=== PATIENT | female | born 1980 | race Caucasian/White ===

== ENCOUNTER 2017-09-01 12:08 | Emergency (ER) | payer OTHER ==
[~2017-09-01] VITALS: Ht 160 cm; Wt 86.2 kg
[~2017-09-01 12:08] MED LIST: AMOX1TAB61 PO; BACI3.5O8 OP; CEPH-263 PO; CEPH-264 PO; CIPR500T PO; DIPH25CA58 PO; HYDR-79 PO; HYDR-963 PO; HYDR-971 PO; HYDR25CA PO; NAPR-514 PO; PRED50TA PO; TRAM50TA PO
--- NOTE | 2017-09-01 12:32 | PHYS DOC ---
General Chief Complaint: ROSANA Stated Complaint: SHOULDER PAIN Time Seen by MD: 12:13 Source: patient Exam Limitations: no limitations Problems: History of Present Illness Initial Comments 37-year-old female comes to the ED complaining of left shoulder pain. Patient states that for the past 1-2 weeks she's had posterior left shoulder pain. She denies any trauma or other known inciting event, states that maybe she slept on it wrong. She points to the muscle belly of infraspinatus when asked to localize her discomfort, says that she has pain with movement of her left shoulder in all directions. She saw her chiropractor and will not go back as her pain worsened. Patient is left-handed and states that she can hardly move her arm without severe pain today. Otherwise denies left upper extremity numbness tingling weakness or radiating symptoms, no bony tenderness. 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 Over-the- counter medications are not helping she has not seen her PCP. Onset: other Severity: severe Pain/Injury Location: left shoulder Method of Injury: unknown Modifying Factors: worse with jarring, worse with movement, improves with rest Allergies: Coded Allergies: Sulfa (Sulfonamide Antibiotics) (Verified Allergy, Intermediate, Rash, ) meloxicam (Verified Allergy, Intermediate, Rash, 04/05/16) prochlorperazine (Verified Allergy, Intermediate, Rash, 04/05/16) menthol (Verified Allergy, Unknown, 04/05/16) rofecoxib (Verified Allergy, Unknown, 04/05/16) Uncoded Allergies: CALAMINE LOTION (Allergy, Unknown, 04/05/16) Past Medical History Medical History: other (asthma) Surgical History: noncontributory Social History Smoker: cigarettes Alcohol: none Drugs: none Review of Systems Constitutional: denies chills, denies diaphoresis, denies fever Respiratory: denies cough, denies shortness of breath Cardiovascular: denies chest pain, denies palpitations Gastrointestinal: denies nausea, denies vomiting Genitourinary: denies frequency, denies hematuria Musculoskeletal: see HPI Skin: see HPI Psychiatric/Neurological: see HPI Physical Exam General Appearance: no apparent distress HEENT: PERRL/EOMI, normal ENT inspection Neck: non-tender, full range of motion, supple Cardiovascular/Respiratory: normal peripheral pulses, normal breath sounds, no respiratory distress Back: no CVA tenderness, no vertebral tenderness Shoulder: soft tissue tenderness (left shoulder: Range of motion not tested due to patient intolerance, tenderness at the infraspinatus and less so at supraspinatus, rotator cuff tendons do appear to be intact there is no soft tissue swelling or skin changes, no bony tenderness or palpable soft tissue or bony deformity. No shoulder instability extremity is neurovascularly intact.) Neurologic/Tendon: normal sensation, normal motor functions, normal tendon functions, responds to pain Psychiatric: alert, oriented x 3 Skin: normal color, warm/dry Orders, Labs, Meds Patient is in agreement that in the absence of trauma plain films would be of little benefit. We will treat symptomatically and if conservative treatment does not resolve symptoms patient agrees to follow-up with her doctor to see if MRI evaluation or outpatient specialty referral, and possibly physical therapy might be indicated. I discussed activity modification, shoulder sling, over-the- counter prescription medications. I discussed signs and symptoms to monitor for as well as indications for urgent return to the department. I advised her to stop smoking and her questions were answered to her satisfaction. She expressed agreement and understanding with treatment plan Departure Time of Disposition: 12:30 Disposition: 01 HOME, SELF-CARE Diagnosis: left shoulder strain Condition: GOOD Patient Instructions: ODALIS - Routine Care for Injuries, [id number], Shoulder Pain, [id number] Additional Instructions: ODALIS, see handout. Wear left arm sling except when bathing. Xium-ebc-dlruylk ibuprofen for baseline discomfort. Prescription: Cyclobenzaprine, [place] 5 mg quantity 10 After 48 hours may change room attendant from ice and start using a heating pad 15-20 minutes 4-6 times daily followed by gentle stretching. Follow-up with your doctor in 2 weeks for recheck, may need MRI or outpatient orthopedics evaluation. Return to ED with new or changing symptoms. JUANA SMITH DO Sep 01, 2017 12:32
[2017-09-01] MEDS ORDERED: CYCL-331 PO (12:34)
[2017-09-01] MEDS ORDERED: HYDR-971 PO (12:34)
[2017-09-01 12:40] VITALS: BP 163/90
[2017-09-01] MEDS ORDERED: HYDROcodone/APAP 7.5/325MG 1 TAB TABLET PO ONE (12:45)
[2017-09-01] MEDS ORDERED: CYCLOBENZAPRINE 10 MG TABLET. PO ONE (12:45)
== END 2017-09-01 12:46 | disposition home or self-care (01) ==
LOC: ER 12:08
DX: S46.912A Strain of unspecified muscle, fascia and tendon at shoulder and upper arm level, left arm, initial encounter (principal); J45.909 Unspecified asthma, uncomplicated; F17.210 Nicotine dependence, cigarettes, uncomplicated; Z88.2 Allergy status to sulfonamides; Z88.8 Allergy status to other drugs, medicaments and biological substances; X58.XXXA Exposure to other specified factors, initial encounter; Y93.89 Activity, other specified; Y99.8 Other external cause status; Y92.89 Other specified places as the place of occurrence of the external cause
CPT/HCPCS: 99283

== ENCOUNTER 2017-10-03 23:18 | Emergency (ER) | payer SELFPAY ==
[~2017-10-03] VITALS: Ht 160 cm; Wt 88.0 kg
[~2017-10-03 23:18] MED LIST changes: +CYCL-331 PO
[2017-10-03 23:20] VITALS: BP 127/80
--- NOTE | 2017-10-03 23:24 | ED.ADGEN ---
Past History Past Medical History: Asthma Past Surgical History: Cholecystectomy, Hysterectomy, Tonsillectomy, Tubal ligation, Other Alcohol Use: None Drug Use: None Adult General Chief Complaint Chief Complaint " .. I am very allergic to bug bites.. I got several the past couple days..they are itching really bad... and hurt.." " We got a new mattress... so I don't think it bed bugs.. and have been out in [place] the last couple days.." HPI HPI Patient is a 37 year old female who presents with above hx and complaints of insect bites. Pt. has multiple inflamed bites, almost mosquito or chigger bite like lesions. Pt. has been scratching them. No pustules. No linear lesions. One bite is under bra strap on back. Other under the under garment. Pt. denies travel or specific ill contacts. No hx immunosuppression. Review of Systems Review of Systems Constitutional: Denies fever or chills [] Eyes: Denies change in visual acuity, redness, or eye pain [] HENT: Denies nasal congestion or sore throat [] Respiratory: Denies cough or shortness of breath [] Cardiovascular: No additional information not addressed in HPI [] GI: Denies abdominal pain, nausea, vomiting, bloody stools or diarrhea [] : Denies dysuria or hematuria [] Musculoskeletal: Denies back pain or joint pain [] Integument: Denies rash or skin lesions [] Complaints of bug bites. Neurologic: Denies headache, focal weakness or sensory changes [] Endocrine: Denies polyuria or polydipsia [] All other systems were reviewed and found to be within normal limits, except as documented in this note. Family History Family History Non-contributory Current Medications Current Medications Current Medications Medications (Trade) Dose Ordered Sig/Lisa Start Time Stop Time Status Last Admin Dose Admin Bacitracin/ Polymyxin B Sulfate (Polysporin) 1 darron 1X ONCE 10/04/17 00:00 10/04/17 00:01 DC 10/03/17 23:47 1 DARRON Famotidine (Pepcid) 20 mg 1X ONCE 10/04/17 00:00 10/04/17 00:01 DC 10/03/17 23:48 20 MG Hydrocodone Bitartrate/ Ibuprofen (Vicoprofen 7.5-200) 2 tab 1X ONCE 10/04/17 00:00 10/04/17 00:01 DC 10/03/17 23:49 2 TAB Prednisone (Prednisone) 60 mg 1X ONCE 10/04/17 00:00 10/04/17 00:01 DC 10/03/17 23:47 60 MG Allergies Allergies Allergies Coded Allergies Type Severity Reaction Last Updated Verified hydrochlorothiazide Allergy Severe 10/03/17 Yes Sulfa (Sulfonamide Antibiotics) Allergy Intermediate Rash 10/03/17 Yes meloxicam Allergy Intermediate Rash 10/03/17 Yes prochlorperazine Allergy Intermediate Rash 10/03/17 Yes menthol Allergy Unknown 10/03/17 Yes rofecoxib Allergy Unknown 10/03/17 Yes Uncoded Allergies Type Severity Reaction Last Updated Verified CALAMINE LOTION Allergy Unknown 04/05/16 Physical Exam Physical Exam Constitutional: Moderate acute distress, non-toxic appearance. [] HENT: Normocephalic, atraumatic, bilateral external ears normal, oropharynx moist, no oral exudates, nose normal. [] Eyes: PERRLA, EOMI, conjunctiva normal, no discharge. [] Neck: Normal range of motion, no tenderness, supple, no stridor. [] Cardiovascular:Heart rate regular rhythm, no murmur [] Lungs & Thorax: Bilateral breath sounds clear to auscultation [] Abdomen: Bowel sounds normal, soft, no tenderness, no masses, no pulsatile masses. [] Old surgery scars. Skin: Warm, dry, no erythema, no rash. [] Insect bites Back: No tenderness, no CVA tenderness. [] Extremities: No tenderness, no cyanosis, no clubbing, ROM intact, no edema. [] Neurologic: Alert and oriented X 3, normal motor function, normal sensory function, no focal deficits noted. [] Psychologic: Affect normal, judgement normal, mood normal. [] Current Patient Data Vital Signs Vital Signs Date Time Temp Pulse Resp B/P (MAP) Pulse Ox O2 Delivery O2 Flow Rate FiO2 10/03/17 23:20 98.1 87 24 100 Room Air EKG EKG [] Radiology/Procedures Radiology/Procedures [] Course & Med Decision Making Course & Med Decision Making Pertinent Labs and Imaging studies reviewed. (See chart for details) Massage area of bites with polysporin 5 min 4 x day. Take Prednisone 50 mg daily. Zantac 150 bid x 15 days. Benadryl 50 mg up 4 x day for itching. Vicoprofen up to qid for severe itching. Must followup with primary. [] Final Impression Final Impression 1. Insect bites- allergic response to bites[] Problems: Dragon Disclaimer Dragon Disclaimer This electronic medical record was generated, in whole or in part, using a voice recognition dictation system. SARAHI BULLARD MD Oct 03, 2017 23:24
[2017-10-03] MEDS ORDERED: BACI28.34 TP (23:39)
[2017-10-03] MEDS ORDERED: PRED50TA PO (23:39)
[2017-10-03] MEDS ORDERED: DIPH25CA58 PO (23:39)
[2017-10-03] MEDS ORDERED: RANI150T6 PO (23:39)
[2017-10-03] MEDS ORDERED: HYDR-79 PO (23:39)
[2017-10-04] MEDS ORDERED: predniSONE 20 MG TABLET PO ONE
[2017-10-04] MEDS ORDERED: HYDROcodon/IBUPROFEN 7.5/200MG 1 TAB TABLET PO ONE
[2017-10-04] MEDS ORDERED: FAMOTIDINE 20 MG TABLET PO ONE
[2017-10-04] MEDS ORDERED: BACITRACIN/POLYMYXIN B TOPICAL OINT 15GM TUBE. TP ONE
== END 2017-10-03 23:57 | disposition home or self-care (01) ==
LOC: ER 23:18
DX: S20.469A Insect bite (nonvenomous) of unspecified back wall of thorax, initial encounter (principal); J45.909 Unspecified asthma, uncomplicated; Z88.2 Allergy status to sulfonamides; Z88.8 Allergy status to other drugs, medicaments and biological substances; W57.XXXA Bitten or stung by nonvenomous insect and other nonvenomous arthropods, initial encounter; Y93.89 Activity, other specified; Y99.8 Other external cause status; Y92.89 Other specified places as the place of occurrence of the external cause
CPT/HCPCS: 99284; J7512

== ENCOUNTER 2017-11-12 14:12 | Emergency (ER) | payer SELFPAY ==
[~2017-11-12] VITALS: Ht 160 cm; Wt 92.5 kg
[~2017-11-12 14:12] MED LIST changes: +BACI28.34 TP; +RANI150T21 PO
[2017-11-12 14:21] VITALS: BP 141/87
[2017-11-12] MEDS ORDERED: CEPH-281 PO (14:37)
[2017-11-12] MEDS ORDERED: DIPH25CA58 PO (14:38)
--- NOTE | 2017-11-12 14:38 | PHYS DOC ---
Past History Past Medical History: Asthma, Other Past Surgical History: Cholecystectomy, Hysterectomy, Tonsillectomy, Tubal ligation Alcohol Use: None Drug Use: None Adult General Chief Complaint Chief Complaint: INSECT BITE HPI HPI 29-year-old female presenting the emergency department with a rash on her right upper extremity. She has 2 bug bites and has redness expanding beyond the bug bites. It is an itchy rash. She responded that she usually improves with corticosteroids and antibiotics. She denies any fevers or chills. Duration constant. No alleviating factors. Review of systems is negative for chest pain shortness of breath abdominal pain. All other review of systems is negative unless otherwise noted in history of present illness. ED course: 29-year-old female presenting to the emergency department with cellulitis associated with 2 insect bites versus allergic reaction. The wound was marked out with a ink pen for evaluation of possible expansion. We'll give the patient oral Keflex and oral prednisone to follow-up with her doctor for re- examination of the wound. [id number] discharge instructions and return precautions given. Patient is comfortable plan. Review of Systems Review of Systems SEE ABOVE. Allergies Allergies Allergies Coded Allergies Type Severity Reaction Last Updated Verified hydrochlorothiazide Allergy Severe 10/03/17 Yes Sulfa (Sulfonamide Antibiotics) Allergy Intermediate Rash 10/03/17 Yes meloxicam Allergy Intermediate Rash 10/03/17 Yes prochlorperazine Allergy Intermediate Rash 10/03/17 Yes menthol Allergy Unknown 10/03/17 Yes rofecoxib Allergy Unknown 10/03/17 Yes Uncoded Allergies Type Severity Reaction Last Updated Verified CALAMINE LOTION Allergy Unknown 04/05/16 Physical Exam Physical Exam SEE ABOVE Constitutional: Well developed, well nourished, no acute distress, non-toxic appearance. [] HENT: Normocephalic, atraumatic, bilateral external ears normal, oropharynx moist, no oral exudates, nose normal. [] Eyes: PERRLA, EOMI, conjunctiva normal, no discharge. [] Neck: Normal range of motion, no tenderness, supple, no stridor. [] Cardiovascular:Heart rate regular rhythm, no murmur [] Lungs & Thorax: Bilateral breath sounds clear to auscultation [] Abdomen: Bowel sounds normal, soft, no tenderness, no masses, no pulsatile masses. [] Skin: Warm, dry, no erythema, no rash. [] Back: No tenderness, no CVA tenderness. [] Extremities: 8 cm of a macular rash around to insect bites, representing cellulitis versus allergic reaction. Otherwise unremarkable exam. No crepitus to palpation. No fluctuant masses. The remainder the extremities are unremarkable. Neurologic: Alert and oriented X 3, normal motor function, normal sensory function, no focal deficits noted. [] Psychologic: Affect normal, judgement normal, mood normal. [] Current Patient Data Vital Signs Vital Signs Date Time Temp Pulse Resp B/P (MAP) Pulse Ox O2 Delivery O2 Flow Rate FiO2 11/12/17 14:21 98.8 67 16 100 Room Air EKG EKG [] Radiology/Procedures Radiology/Procedures [] Course & Med Decision Making Course & Med Decision Making Pertinent Labs and Imaging studies reviewed. (See chart for details) [] Dragon Disclaimer Dragon Disclaimer This electronic medical record was generated, in whole or in part, using a voice recognition dictation system. Departure Departure: Impression: Primary Impression: Cellulitis Additional Impression: Allergic reaction to insect bite Disposition: HOME, SELF-CARE Condition: STABLE Referrals: RAMAN SHARMA (PCP) Patient Instructions: Cellulitis Additional Instructions: Thank you for allowing us to participate in your care today. Followup with your primary care physician in 3 days if your symptoms do not improve. Call your Primary Doctor tomorrow and inform them of your visit today. If you do not have a primary care provider you can ask for a list of our primary care providers. Return to the emergency department you have any new or concerning findings. This should be evaluated by the primary care physician and any necessary consulting services for continued management within a few days after discharge. Return to emergency room if you have any new or concerning symptoms including but not limited to fever, chills, nausea, vomiting, intractable pain, any new rashes, chest pain, shortness of air, uncontrolled bleeding, difficulty breathing, and/or vision loss. If at any time, you are having difficulty getting into your primary care doctor or a specialist, return to the emergency department. Scripts Prednisone (PREDNISONE) 50 Mg Tablet 1 TAB PO DAILY, #4 TAB You received this medication in the emergency room today. You will starting your next dose tomorrow. Prov: TONI MENDOZA MD 11/12/17 Diphenhydramine Hcl (BENADRYL) 25 Mg Capsule 1 CAP PO PRN QHS PRN for ITCHING, #7 CAP 0 Refills Prov: TONI MENDOZA MD 11/12/17 Cephalexin (CEPHALEXIN) 250 Mg Capsule 1 CAP PO QID, #28 CAP Prov: TONI MENDOZA MD 11/12/17 Problem Qualifiers TONI MENDOZA MD November 12, 2017 14:38
[2017-11-12] MEDS ORDERED: PRED50TA PO (14:42)
[2017-11-12] MEDS ORDERED: CEPHALEXIN 250 MG CAPSULE PO ONE (15:15)
[2017-11-12] MEDS ORDERED: predniSONE 10 MG TABLET PO ONE (15:15)
== END 2017-11-12 14:59 | disposition home or self-care (01) ==
LOC: ER 14:12
DX: S40.862A Insect bite (nonvenomous) of left upper arm, initial encounter (principal); L03.113 Cellulitis of right upper limb; T78.49XA Other allergy, initial encounter; J45.909 Unspecified asthma, uncomplicated; Z88.8 Allergy status to other drugs, medicaments and biological substances; Z88.2 Allergy status to sulfonamides; W57.XXXA Bitten or stung by nonvenomous insect and other nonvenomous arthropods, initial encounter; Y93.89 Activity, other specified; Y99.8 Other external cause status; Y92.89 Other specified places as the place of occurrence of the external cause
CPT/HCPCS: 99283; J7512

== ENCOUNTER 2017-11-17 20:02 | Emergency (ER) | payer SELFPAY ==
[~2017-11-17] VITALS: Ht 160 cm; Wt 88.0 kg
[~2017-11-17 20:02] MED LIST changes: +CEPH-281 PO
--- NOTE | 2017-11-17 21:17 | ED.ADGEN ---
Past History Past Medical History: Asthma, Migraines, Other Past Surgical History: Cholecystectomy, Hysterectomy, Tonsillectomy, Tubal ligation Alcohol Use: None Drug Use: None Adult General Chief Complaint Chief Complaint " I get migraines..this just a bad one. it is one I usually needs to meds in ED... " HPI HPI Patient is a 37 year old female who presents with above hx and complaints of migraine. Patient states this is onset and presentation as her typical migraines. Patient advised previous CTs have been normal. Patient denies any fever, chills, ill contacts or recent travel. She denies any trauma. Patient requesting only meds and no labs or CT. Patient requests to be treated clinically. Patient has past has been following with Dr. 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 Patient reports she does have chronic dizziness. Patient denies any history of immunosuppression.or IV drug use. Review of Systems Review of Systems Constitutional: Denies fever or chills [] Eyes: Denies change in visual acuity, redness, or eye pain [] HENT: Denies nasal congestion or sore throat [] Respiratory: Denies cough or shortness of breath [] Cardiovascular: No additional information not addressed in HPI [] GI: Denies abdominal pain, nausea, vomiting, bloody stools or diarrhea [] : Denies dysuria or hematuria [] Musculoskeletal: Denies back pain or joint pain [] Integument: Denies rash or skin lesions [] Neurologic: Complaints of headache, denies focal weakness or sensory changes [] Endocrine: Denies polyuria or polydipsia [] All other systems were reviewed and found to be within normal limits, except as documented in this note. Family History Family History Noncontributory Current Medications Current Medications Current Medications Medications (Trade) Dose Ordered Sig/Lisa Start Time Stop Time Status Last Admin Dose Admin Diphenhydramine HCl (Benadryl) 50 mg 1X ONCE 11/17/17 21:30 11/17/17 21:31 DC 11/17/17 21:39 50 MG Ketorolac Tromethamine (Toradol) 60 mg 1X ONCE 11/17/17 21:30 11/17/17 21:31 DC 11/17/17 21:38 60 MG Ondansetron HCl (Zofran Odt) 8 mg 1X ONCE 11/17/17 21:30 11/17/17 21:31 DC 11/17/17 21:37 8 MG Oxycodone/ Acetaminophen (Percocet 5/325) 2 tab 1X ONCE 11/17/17 21:30 11/17/17 21:31 DC 11/17/17 21:38 2 TAB Sumatriptan Succinate (Imitrex) 6 mg 1X ONCE 11/17/17 21:30 11/17/17 21:31 DC 11/17/17 21:39 6 MG Allergies Allergies Allergies Coded Allergies Type Severity Reaction Last Updated Verified hydrochlorothiazide Allergy Severe 10/03/17 Yes Sulfa (Sulfonamide Antibiotics) Allergy Intermediate Rash 10/03/17 Yes meloxicam Allergy Intermediate Rash 10/03/17 Yes prochlorperazine Allergy Intermediate Rash 10/03/17 Yes menthol Allergy Unknown 10/03/17 Yes rofecoxib Allergy Unknown 10/03/17 Yes Uncoded Allergies Type Severity Reaction Last Updated Verified CALAMINE LOTION Allergy Unknown 04/05/16 Physical Exam Physical Exam Constitutional: Well developed, well nourished, no acute distress, non-toxic appearance. [] HENT: Normocephalic, atraumatic, bilateral external ears normal, oropharynx moist, no oral exudates, nose normal. []Old scars. Eyes: PERRLA, EOMI, conjunctiva normal, no discharge. [] Neck: Normal range of motion, no tenderness, supple, no stridor. [] Cardiovascular:Heart rate regular rhythm, no murmur [] Lungs & Thorax: Bilateral breath sounds equal at apexes few scattered wheezes on auscultation [] Abdomen: Bowel sounds normal, soft, no tenderness, no masses, no pulsatile masses. [] Old scars.. Skin: Warm, dry, no erythema, no rash. [] Back: No tenderness, no CVA tenderness. [] Extremities: No tenderness, no cyanosis, no clubbing, ROM intact, no edema. [] Neurologic: Alert and oriented X 3, normal motor function, normal sensory function, no focal deficits noted. []DTRs +2 patella and brachial. No drift. Pilot Can Router equal. Distal sensation intact. The torn without problems. No Romberg. Psychologic: Affect normal, judgement normal, mood normal. [] Current Patient Data Vital Signs Vital Signs Date Time Temp Pulse Resp B/P (MAP) Pulse Ox O2 Delivery O2 Flow Rate FiO2 11/17/17 22:00 66 16 162/92 (115) 95 11/17/17 21:38 Room Air 11/17/17 20:55 98.0 Lab Results Laboratory Tests Test 11/17/17 21:12 Urine Opiates Screen Neg (NEG) Urine Methadone Screen Neg (NEG) Urine Barbiturates Neg (NEG) Urine Phencyclidine Screen Neg (NEG) Urine Amphetamine/Methamphetamine Neg (NEG) Urine Benzodiazepines Screen Neg (NEG) Urine Cocaine Screen Neg (NEG) Urine Cannabinoids Screen Pos (NEG) Urine Ethyl Alcohol Neg (NEG) EKG EKG [] Radiology/Procedures Radiology/Procedures Patient declines CT[] Course & Med Decision Making Course & Med Decision Making Pertinent Labs and Imaging studies reviewed. (See chart for details).. Patient to take Zofran as needed for nausea and vomiting. Patient take [id number] Tylenol and ibuprofen for pain. Patient given a prescription for Imitrex 100 mg at start of headache. Return if any concerns. Patient follow-up primary care. Recommended revisit with . [] Final Impression Final Impression 1. Migraine[] Dragon Disclaimer Dragon Disclaimer This electronic medical record was generated, in whole or in part, using a voice recognition dictation system. SARAHI BULLARD MD November 17, 2017 21:17
[2017-11-17] MEDS ORDERED: ONDA8TAB12 PO (21:23)
[2017-11-17] MEDS ORDERED: SUMA100T3 PO (21:23)
[2017-11-17] MEDS ORDERED: HYDR-79 PO (21:23)
[2017-11-17] MEDS ORDERED: diphenhydrAMINE 50 MG/ML VIAL IM ONE (21:30)
[2017-11-17] MEDS ORDERED: KETOROLAC 60 MG/2 ML VIAL. IM ONE (21:30)
[2017-11-17] MEDS ORDERED: ONDANSETRON ODT 4 MG TAB.RAPDIS PO ONE (21:30)
[2017-11-17] MEDS ORDERED: oxyCODONE/APAP 5/325 1 TAB TABLET PO ONE (21:30)
[2017-11-17] MEDS ORDERED: SUMAtriptan SUCC 6 MG/0.5 ML VIAL SQ ONE (21:30)
[2017-11-17 21:50] LABS: AMPHETAMINE/METHAMPHETAMINE NEG (NEG); BARBITURATES NEG (NEG); BENZODIAZEPINES NEG (NEG); CANNABINOIDS POS (NEG); COCAINE NEG (NEG); METHADONE NEG (NEG); OPIATES NEG (NEG); PHENCYCLIDINE NEG (NEG)
[2017-11-17 22:34] VITALS: BP 173/103
== END 2017-11-17 22:34 | disposition home or self-care (01) ==
LOC: ER 20:02
DX: R51 Headache (principal); G43.909 Migraine, unspecified, not intractable, without status migrainosus; J45.909 Unspecified asthma, uncomplicated; Z88.2 Allergy status to sulfonamides; Z88.5 Allergy status to narcotic agent; Z88.8 Allergy status to other drugs, medicaments and biological substances
CPT/HCPCS: 36415; 80307; 96372; 99284; J1200; J1885; J3030; Q0162; G0479

== ENCOUNTER 2018-01-05 18:42 | Emergency (ER) | payer SELFPAY ==
[~2018-01-05] VITALS: Ht 160 cm; Wt 86.2 kg
[~2018-01-05 18:42] MED LIST changes: +ONDA8TAB12 PO; +SUMA100T3 PO
[2018-01-05 18:57] VITALS: BP 137/93
[2018-01-05] MEDS ORDERED: ACETAMINOPHEN 500 MG TABLET PO ONE (19:15)
--- NOTE | 2018-01-06 06:36 | ED.ADGEN ---
Past History Past Medical History: Asthma Past Surgical History: Cholecystectomy, Hysterectomy, Tonsillectomy, Tubal ligation Alcohol Use: None Drug Use: None Adult General Chief Complaint Chief Complaint Exacerbation of chronic back pain [facility] HPI Patient is a 37-year-old male with history of chronic back pain well-known to this emergency department presents with exacerbation of chronic back pain. Patient reports hurting lower back last night or yesterday while bending. Pain is now radiating to her hip and upper chest region on the right. Pain is described sharp rated moderate to severe and is worse with palpation, trunk movement and position change. Patient is taking [id number] medication without relief. No nausea vomiting, no flank pain, no urinary frequency urgency or hematuria. No loss of motor extremity or loss of systems. No other acute symptoms or complaints. Review of Systems Review of Systems ROS as per hpi All other systems were reviewed and found to be within normal limits, except as documented in this note. Current Medications Current Medications Current Medications Medications (Trade) Dose Ordered Sig/Lisa Start Time Stop Time Status Last Admin Dose Admin Acetaminophen (Tylenol) 1,000 mg 1X ONCE 01/05/18 19:15 01/05/18 19:16 DC 01/05/18 19:28 1,000 MG Allergies Allergies Allergies Coded Allergies Type Severity Reaction Last Updated Verified hydrochlorothiazide Allergy Severe 10/03/17 Yes Sulfa (Sulfonamide Antibiotics) Allergy Intermediate Rash 10/03/17 Yes meloxicam Allergy Intermediate Rash 10/03/17 Yes prochlorperazine Allergy Intermediate Rash 10/03/17 Yes menthol Allergy Unknown 10/03/17 Yes rofecoxib Allergy Unknown 10/03/17 Yes Uncoded Allergies Type Severity Reaction Last Updated Verified CALAMINE LOTION Allergy Unknown 04/05/16 Physical Exam Physical Exam Constitutional: Well developed, well nourished, no acute distress, non-toxic appearance. [] HENT: Normocephalic, atraumatic, bilateral external ears normal, oropharynx moist, no oral exudates, nose normal. [] Eyes: PERRLA, EOMI, conjunctiva normal, no discharge. [] Neck: Normal range of motion, no tenderness. [] Cardiovascular:Heart rate regular rhythm, no murmur [] Lungs & Thorax: Bilateral breath sounds clear to auscultation [] Abdomen: Bowel sounds normal, soft, no tenderness. [] Skin: Warm, dry. [] Back: No tenderness, R CVA tenderness. [] Extremities: No tenderness, no edema. [] Neurologic: Alert and oriented X 3, normal motor function, normal sensory function. [] Psychologic: Affect normal, judgement normal, mood normal. [] Current Patient Data Vital Signs Vital Signs Date Time Temp Pulse Resp B/P (MAP) Pulse Ox O2 Delivery O2 Flow Rate FiO2 01/05/18 18:57 99.0 70 16 99 Room Air EKG EKG [] Radiology/Procedures Radiology/Procedures [] Course & Med Decision Making Course & Med Decision Making Pertinent Labs and Imaging studies reviewed. (See chart for details) [Exacerbation of chronic back pain known neurologic deficits. Pain addressed in the emergency department. Recommend supportive measures and PCP follow-up for further management.] Final Impression Final Impression [1. Chest pain] Dragon Disclaimer Dragon Disclaimer This electronic medical record was generated, in whole or in part, using a voice recognition dictation system. PHILIP JUAREZ DO Jan 06, 2018 06:36
== END 2018-01-05 19:31 | disposition home or self-care (01) ==
LOC: ER 18:42
DX: R07.89 Other chest pain (principal); G89.29 Other chronic pain; J45.909 Unspecified asthma, uncomplicated; Z90.49 Acquired absence of other specified parts of digestive tract; Z90.710 Acquired absence of both cervix and uterus; Z98.51 Tubal ligation status; Z88.2 Allergy status to sulfonamides; Z88.8 Allergy status to other drugs, medicaments and biological substances
CPT/HCPCS: 99282

== ENCOUNTER 2018-03-11 00:26 | Emergency (ER) | payer SELFPAY ==
[~2018-03-11] VITALS: Ht 160 cm; Wt 90.7 kg
[2018-03-11 00:38] VITALS: BP 150/92
[2018-03-11] MEDS ORDERED: HYDR-971 PO (01:10)
[2018-03-11] MEDS ORDERED: oxyCODONE/APAP 10/325 1 TAB TABLET ONE (01:11)
[2018-03-11] MEDS ORDERED: oxyCODONE/APAP 10/325 1 TAB TABLET PO ONE (01:30)
== END 2018-03-11 01:17 | disposition home or self-care (01) ==
LOC: ER 00:26
DX: H92.03 Otalgia, bilateral (principal); J06.9 Acute upper respiratory infection, unspecified
CPT/HCPCS: 99283

== ENCOUNTER 2018-03-16 09:23 | Emergency (ER) | payer SELFPAY ==
[~2018-03-16] VITALS: Ht 160 cm; Wt 90.7 kg
[2018-03-16 09:50] VITALS: BP 147/103
--- NOTE | 2018-03-16 15:02 | ED.ADGEN ---
Past History Past Medical History: Anxiety, Asthma Past Surgical History: Cholecystectomy, Colectomy, Hysterectomy, Tonsillectomy , Other Alcohol Use: None Drug Use: None Adult General Chief Complaint Chief Complaint sore throat [facility] HPI Patient is a 38-year-old female who presents with sore throat times one day. Reports nasal congestion, rhinorrhea occasional cough. No fever, chills, nausea vomiting or sweats. No dysphagia, trismus or hoarseness. No medications or therapy sticking prior to ED arrival.[] Review of Systems Review of Systems ROS as per HPI. All other systems were reviewed and found to be within normal limits, except as documented in this note. Allergies Allergies Allergies Coded Allergies Type Severity Reaction Last Updated Verified hydrochlorothiazide Allergy Severe 10/03/17 Yes Sulfa (Sulfonamide Antibiotics) Allergy Intermediate Rash 10/03/17 Yes meloxicam Allergy Intermediate Rash 10/03/17 Yes prochlorperazine Allergy Intermediate Rash 10/03/17 Yes menthol Allergy Unknown 10/03/17 Yes rofecoxib Allergy Unknown 10/03/17 Yes Uncoded Allergies Type Severity Reaction Last Updated Verified CALAMINE LOTION Allergy Unknown 04/05/16 Physical Exam Physical Exam Constitutional: Well developed, well nourished, no acute distress, non-toxic appearance. [] HENT: Normocephalic, atraumatic, bilateral external ears normal, oropharynx, dental erythema, no oral exudates, nose. [] Eyes: PERRLA, EOMI, conjunctiva normal, no discharge. [] Neck: Normal range of motion, no tenderness,no stridor. [] Cardiovascular:Heart rate regular rhythm, no murmur [] Lungs & Thorax: Bilateral breath sounds clear to auscultation [] Abdomen: Bowel sounds normal, soft, no tenderness. [] Skin: Warm, dry, no erythema, no rash. [] Back: No tenderness. [] Extremities: No tenderness, no cyanosis, no edema. [] Neurologic: Alert and oriented X 3, normal motor function, normal sensory function, no focal deficits noted. [] Psychologic: Affect normal, judgement normal, mood normal. [] Current Patient Data Vital Signs Vital Signs Date Time Temp Pulse Resp B/P (MAP) Pulse Ox O2 Delivery O2 Flow Rate FiO2 03/16/18 09:50 80 20 147/103 (118) 97 Room Air 03/16/18 09:23 99.9 EKG EKG [] Radiology/Procedures Radiology/Procedures [] Course & Med Decision Making Course & Med Decision Making Pertinent Labs and Imaging studies reviewed. (See chart for details) [Sore throat, no exudate, cervical adenopathy. Suspect viral syndrome. Supportive care recommended. Courtesy work note provided. ] Final Impression Final Impression [] Dragon Disclaimer Dragon Disclaimer This electronic medical record was generated, in whole or in part, using a voice recognition dictation system. PHILIP JUAREZ DO Mar 16, 2018 15:02
== END 2018-03-16 09:50 | disposition home or self-care (01) ==
LOC: ER 09:23
DX: J02.9 Acute pharyngitis, unspecified (principal); F41.9 Anxiety disorder, unspecified; J45.909 Unspecified asthma, uncomplicated; Z88.2 Allergy status to sulfonamides; Z88.8 Allergy status to other drugs, medicaments and biological substances
CPT/HCPCS: 99281

== ENCOUNTER 2018-04-29 23:28 | Emergency (ER) | payer SELFPAY ==
[~2018-04-29] VITALS: Ht 160 cm; Wt 90.7 kg
[2018-04-29] MEDS ORDERED: SUMAtriptan SUCC 6 MG/0.5 ML VIAL SQ ONE (23:57)
[2018-04-29] MEDS ORDERED: diphenhydrAMINE 50 MG/ML VIAL ONE (23:57)
[2018-04-30] MEDS ORDERED: SUMA50TA3 PO (00:01)
--- NOTE | 2018-04-30 00:08 | PHYS DOC ---
Adult General Chief Complaint Chief Complaint headache HPI HPI Chronic daily headache described as tension throbbing headache all over her head similar to the previous headaches she had requested Toradol and Benadryl shot stated this is the only thing that works for me Review of Systems Review of Systems Constitutional: Denies fever or chills [] Eyes: Denies change in visual acuity, redness, or eye pain [] HENT: Denies nasal congestion or sore throat [] Respiratory: Denies cough or shortness of breath [] Cardiovascular: No additional information not addressed in HPI [] GI: Denies abdominal pain, nausea, vomiting, bloody stools or diarrhea [] : Denies dysuria or hematuria [] Musculoskeletal: Denies back pain or joint pain [] Integument: Denies rash or skin lesions [] Neurologic: Denies, focal weakness or sensory changes [] Endocrine: Denies polyuria or polydipsia [] All other systems were reviewed and found to be within normal limits, except as documented in this note. Current Medications Current Medications Current Medications Medications (Trade) Dose Ordered Sig/Lisa Start Time Stop Time Status Last Admin Dose Admin Diphenhydramine HCl (Benadryl) 50 mg STK-MED ONCE 04/29/18 23:57 04/29/18 23:58 DC Ketorolac Tromethamine (Toradol Im) 60 mg 1X ONCE 04/30/18 00:30 04/30/18 00:31 04/30/18 00:01 60 MG Sumatriptan Succinate (Imitrex) 6 mg STK-MED ONCE 04/29/18 23:57 04/29/18 23:58 DC Allergies Allergies Allergies Coded Allergies Type Severity Reaction Last Updated Verified hydrochlorothiazide Allergy Severe 10/03/17 Yes Sulfa (Sulfonamide Antibiotics) Allergy Intermediate Rash 10/03/17 Yes meloxicam Allergy Intermediate Rash 10/03/17 Yes prochlorperazine Allergy Intermediate Rash 10/03/17 Yes menthol Allergy Unknown 10/03/17 Yes rofecoxib Allergy Unknown 10/03/17 Yes Uncoded Allergies Type Severity Reaction Last Updated Verified CALAMINE LOTION Allergy Unknown 04/05/16 Physical Exam Physical Exam Constitutional: Well developed, well nourished, no acute distress, non-toxic appearance. [] HENT: Normocephalic, atraumatic, bilateral external ears normal, oropharynx moist, no oral exudates, nose normal. [] Eyes: PERRLA, EOMI, conjunctiva normal, no discharge. [] Neck: Normal range of motion, no tenderness, supple, no stridor. [] Cardiovascular:Heart rate regular rhythm, no murmur [] Lungs & Thorax: Bilateral breath sounds clear to auscultation [] Abdomen: Bowel sounds normal, soft, no tenderness, no masses, no pulsatile masses. [] Skin: Warm, dry, no erythema, no rash. [] Back: No tenderness, no CVA tenderness. [] Extremities: No tenderness, no cyanosis, no clubbing, ROM intact, no edema. [] Neurologic: Alert and oriented X 3, normal motor function, normal sensory function, no focal deficits noted. [] Psychologic: Affect normal, judgement normal, mood normal. [] Current Patient Data Vital Signs Vital Signs Date Time Temp Pulse Resp B/P (MAP) Pulse Ox O2 Delivery O2 Flow Rate FiO2 04/29/18 23:35 98.8 80 20 98 Room Air EKG EKG [] Radiology/Procedures Radiology/Procedures [] Course & Med Decision Making Course & Med Decision Making Pertinent Labs and Imaging studies reviewed. (See chart for details) [] Final Impression Final Impression [] Problems: (1) Chronic headache Qualifiers: Qualified Codes: G44.229 - Chronic tension-type headache, not intractable Dragon Disclaimer Dragon Disclaimer This electronic medical record was generated, in whole or in part, using a voice recognition dictation system. DUSTY ZHANG MD Apr 30, 2018 00:08
[2018-04-30 00:20] VITALS: BP 137/82
[2018-04-30] MEDS ORDERED: diphenhydrAMINE 50 MG/ML VIAL IM ONE (00:30)
[2018-04-30] MEDS ORDERED: KETOROLAC 60 MG/2 ML VIAL. IM ONE (00:30)
[2018-04-30] MEDS ORDERED: SUMAtriptan SUCC 6 MG/0.5 ML VIAL SQ ONE (00:30)
== END 2018-04-30 00:28 | disposition home or self-care (01) ==
LOC: ER 23:28
DX: G44.229 Chronic tension-type headache, not intractable (principal); Z88.2 Allergy status to sulfonamides; Z88.8 Allergy status to other drugs, medicaments and biological substances
CPT/HCPCS: 96372; 99284; J1200; J1885; J3030

== ENCOUNTER 2018-12-06 22:14 | Emergency (ER) | payer SELFPAY ==
[~2018-12-06] VITALS: Ht 160 cm; Wt 88.0 kg
[~2018-12-06 22:14] MED LIST changes: +HYDR-1179 PO; +HYDR-3136 PO; +HYDR-3165 PO; -HYDR-79 PO; -HYDR-963 PO; -HYDR-971 PO; +RANI-376 PO; -RANI150T21 PO; +SUMA50TA3 PO
--- NOTE | 2018-12-06 22:17 | ED.ADGEN ---
Past History Past Medical History: Asthma, Migraines Past Surgical History: Cholecystectomy, Hysterectomy, Tonsillectomy Alcohol Use: None Drug Use: None Adult General Chief Complaint Chief Complaint :".. I ve been chewing my nails.. and I got a hang nail... on this 4th finger.. but I tried a bahraini treatment .. and it just made it worse.. " HPI HPI Patient is a 38 year old female who presents with above hx with complaints of Rt finger cellulitis, abscess, paronychia and pain. Distal sensory equal to other fingers. Range of motion, but painful with 4th finger. Hx. tetanus 4 yrs. ago. Pt. denies any history of immunosuppression. No recent travel. No history of injury other than she chews her nails. Pt. states she usually clears up these type infections with penicillin. Is allergic to Bactrim. Review of Systems Review of Systems Constitutional: Denies fever or chills [] Eyes: Denies change in visual acuity, redness, or eye pain [] HENT: Denies nasal congestion or sore throat [] Respiratory: Denies cough or shortness of breath [] Cardiovascular: No additional information not addressed in HPI [] GI: Denies abdominal pain, nausea, vomiting, bloody stools or diarrhea [] : Denies dysuria or hematuria [] Musculoskeletal: Denies back pain or joint pain []complains of right fourth finger paronychia Integument: Denies rash or skin lesions [] Neurologic: Denies headache, focal weakness or sensory changes [] Endocrine: Denies polyuria or polydipsia [] All other systems were reviewed and found to be within normal limits, except as documented in this note. Family History Family History Noncontributory Current Medications Current Medications Current Medications Medications (Trade) Dose Ordered Sig/Lisa Start Time Stop Time Status Last Admin Dose Admin Bacitracin (Bacitracin Topical Pkt) 1 pkt 1X ONCE 12/06/18 23:00 12/06/18 23:01 DC 12/06/18 23:05 1 PKT Cephalexin HCl (Keflex) 500 mg 1X ONCE 12/06/18 23:00 12/06/18 23:01 DC 12/06/18 23:05 500 MG Hydrocodone Bitartrate/ Ibuprofen (Vicoprofen 7.5-200) 2 tab 1X ONCE 12/06/18 23:00 12/06/18 23:01 DC 12/06/18 23:05 2 TAB Allergies Allergies Allergies Coded Allergies Type Severity Reaction Last Updated Verified hydrochlorothiazide Allergy Severe 10/03/17 Yes Sulfa (Sulfonamide Antibiotics) Allergy Intermediate Rash 10/03/17 Yes meloxicam Allergy Intermediate Rash 10/03/17 Yes prochlorperazine Allergy Intermediate Rash 10/03/17 Yes menthol Allergy Unknown 10/03/17 Yes rofecoxib Allergy Unknown 10/03/17 Yes Uncoded Allergies Type Severity Reaction Last Updated Verified CALAMINE LOTION Allergy Unknown 04/05/16 Physical Exam Physical Exam Constitutional: in, moderately acute distress, non-toxic appearance. [] HENT: Normocephalic, atraumatic, bilateral external ears normal, oropharynx moist, no oral exudates, nose normal. [] Eyes: PERRLA, EOMI, conjunctiva normal, no discharge. [] Neck: Normal range of motion, no tenderness, supple, no stridor. [] Cardiovascular:Heart rate regular rhythm, no murmur [] Lungs & Thorax: Bilateral breath sounds clear to auscultation [] Abdomen: Bowel sounds normal, soft, no tenderness, no masses, no pulsatile masses. [] Skin: Warm, dry, no erythema, no rash. [] Back: No tenderness, no CVA tenderness. [] Extremities: No tenderness, no cyanosis, no clubbing, ROM intact, no edema. [] Except findings in Rt. 4th finger- as per HPI. Neurologic: Alert and oriented X 3, normal motor function, normal sensory function, no focal deficits noted. [] Psychologic: Affect anxious, judgement normal, mood normal. [] Current Patient Data Vital Signs Vital Signs Date Time Temp Pulse Resp B/P (MAP) Pulse Ox O2 Delivery O2 Flow Rate FiO2 12/06/18 22:21 109 18 108/58 (75) 100 Room Air 12/06/18 22:14 98.8 EKG EKG [] Radiology/Procedures Radiology/Procedures [] Course & Med Decision Making Course & Med Decision Making Pertinent Labs and Imaging studies reviewed. (See chart for details) Procedure note: Incision and Drainage. - finer soaked in Betadine.. Incision with 15 blade to release pus. Bactratcin ointment applied with dressing. Keflex 500 three times a day. Warm salt water or episome salt water soaks 4 x day with application polysporin ointment afterwards. Tylenol and Ibuprofen for pain. Return if any concerns. [] Final Impression Final Impression 1. Rt 4th finger paronychia, cellulitis and abscess [] Dragon Disclaimer Dragon Disclaimer This electronic medical record was generated, in whole or in part, using a voice recognition dictation system. Discharge Summary Visit Information Final Diagnosis Problems Medical Problems: (1) Cellulitis of right hand Status: Acute Brief Hospital Course Allergies Allergies Coded Allergies Type Severity Reaction Last Updated Verified hydrochlorothiazide Allergy Severe 10/03/17 Yes Sulfa (Sulfonamide Antibiotics) Allergy Intermediate Rash 10/03/17 Yes meloxicam Allergy Intermediate Rash 10/03/17 Yes prochlorperazine Allergy Intermediate Rash 10/03/17 Yes menthol Allergy Unknown 10/03/17 Yes rofecoxib Allergy Unknown 10/03/17 Yes Uncoded Allergies Type Severity Reaction Last Updated Verified CALAMINE LOTION Allergy Unknown 04/05/16 Vital Signs Vital Signs Date Time Temp Pulse Resp B/P (MAP) Pulse Ox O2 Delivery O2 Flow Rate FiO2 12/06/18 22:21 109 18 108/58 (75) 100 Room Air 12/06/18 22:14 98.8 Brief Hospital Course Ms. Braun is a 38 old female who presented with paronychia and pointing abscess of right fourth finger. Discharge Information Condition at Discharge: Improved, Stable Disposition/Orders: D/C to Home Dischare Medications Current Medications Hydrocodone Bitartrate/ Ibuprofen (Vicoprofen 7.5-200) 2 tab 1X ONCE PO Last administered on 12/06/18at 23:05; Admin Dose 2 TAB; Start 12/06/18 at 23:00; Stop 12/06/18 at 23:01; Status DC Bacitracin (Bacitracin Topical Pkt) 1 pkt 1X ONCE TP Last administered on 12/06/18at 23:05; Admin Dose 1 PKT; Start 12/06/18 at 23:00; Stop 12/06/18 at 23:01; Status DC Cephalexin HCl (Keflex) 500 mg 1X ONCE PO Last administered on 12/06/18at 23:05; Admin Dose 500 MG; Start 12/06/18 at 23:00; Stop 12/06/18 at 23:01; Status DC Active Scripts Active Polysporin Ointment (Bacitracin/Polymyxin B Sulfate) 28.3 Gm Oint...g. 28.3 Gm TP QID 90 Days Hydrocodone-Ibuprofen 7.5-200 (Hydrocodone/Ibuprofen) 1 Each Tablet 1 Tab PO PRN Q6HRS PRN Keflex (Cephalexin) 500 Mg Capsule 500 Mg PO TID 10 Days Imitrex (Sumatriptan Succinate) 50 Mg Tablet 1 Tab PO UD Kerman 5-325 Tablet (Hydrocodone Bit/Acetaminophen) 1 Each Tablet 1 Tab PO TID Imitrex (Sumatriptan Succinate) 100 Mg Tablet 1 Tab PO UD PRN Zofran Odt (Ondansetron) 8 Mg Tab.rapdis 8 Mg PO QIDPRN Hydrocodone-Ibuprofen 7.5-200 (Hydrocodone/Ibuprofen) 1 Each Tablet 1 Tab PO PRN Q6HRS PRN Prednisone 50 Mg Tablet 1 Tab PO DAILY You received this medication in the emergency room today. You will starting your next dose tomorrow. Benadryl (Diphenhydramine Hcl) 25 Mg Capsule 1 Cap PO PRN QHS PRN Cephalexin 250 Mg Capsule 1 Cap PO QID Prednisone 50 Mg Tablet 50 Mg PO DAILY 5 Days Zantac (Ranitidine Hcl) 150 Mg Tablet 150 Mg PO BID 30 Days Benadryl (Diphenhydramine Hcl) 25 Mg Capsule 50 Mg PO QIDPRN PRN Polysporin Ointment (Bacitracin/Polymyxin B Sulfate) 28.3 Gm Oint...g. 28.3 Gm TP QID 15 Days Hydrocodone-Ibuprofen 7.5-200 (Hydrocodone/Ibuprofen) 1 Each Tablet 1 Tab PO PRN Q6HRS PRN Cyclobenzaprine Hcl 10 Mg Tablet 1 Tab PO TID Kerman 5-325 Tablet (Hydrocodone Bit/Acetaminophen) 1 Each Tablet 1 Tab PO PRN Q6HRS PRN Keflex (Cephalexin) 500 Mg Capsule 1 Cap PO TID Vistaril (Hydroxyzine Pamoate) 25 Mg Capsule 1 Cap PO TID PRN Bacitracin 3.5 Gm Oint...g. 3.5 Gm OP QID 30 Days Benadryl (Diphenhydramine Hcl) 25 Mg Capsule 50 Mg PO QIDPRN PRN Hydrocodone-Ibuprofen 7.5-200 (Hydrocodone/Ibuprofen) 1 Each Tablet 1 Tab PO PRN Q6HRS PRN Hydrocodone-Ibuprofen 7.5-200 (Hydrocodone/Ibuprofen) 1 Each Tablet 1 Tab PO PRN Q6HRS PRN Tramadol Hcl (Tramadol HCl) 50 Mg Tablet 50 Mg PO PRN Q6HRS PRN Keflex (Cephalexin) 500 Mg Capsule 1 Cap PO TID Prednisone 50 Mg Tablet 1 Tab PO DAILY Benadryl (Diphenhydramine Hcl) 25 Mg Capsule 2 Cap PO QHS Keflex (Cephalexin) 250 Mg Capsule 1 Cap PO TID Kerman 5-325 Tablet (Hydrocodone Bit/Acetaminophen) 1 Each Tablet 1-2 Tab PO PRN Q6HRS PRN Tramadol Hcl (Tramadol HCl) 50 Mg Tablet 50 Mg PO Q4-6HRS PRN Naproxen 500 Mg Tablet 500 Mg PO BID PRN Reported No Known Medications Prior To Admisstion (Info) Each 1 Each Fermín Disclaimer This chart was dictated in whole or in part using Voice Recognition software in a busy, high-work load, and often noisy Emergency Department environment. It may contain unintended and wholly unrecognized errors or omissions. SARAHI BULLARD MD Dec 06, 2018 22:17
[2018-12-06] MEDS ORDERED: BACI28.34 TP (22:43)
[2018-12-06] MEDS ORDERED: HYDR-1179 PO (22:43)
[2018-12-06] MEDS ORDERED: CEPH-264 PO (22:43)
[2018-12-06] MEDS ORDERED: HYDROcodon/IBUPROFEN 7.5/200MG 1 TAB TABLET PO ONE (23:00)
[2018-12-06] MEDS ORDERED: CEPHALEXIN 250 MG CAPSULE PO ONE (23:00)
[2018-12-06] MEDS ORDERED: BACITRACIN ZINC TOPICAL OINT PACKET. TP ONE (23:00)
[2018-12-06 23:10] VITALS: BP 152/108
== END 2018-12-06 23:10 | disposition home or self-care (01) ==
LOC: ER 22:14
DX: L03.011 Cellulitis of right finger (principal); L02.511 Cutaneous abscess of right hand; J45.909 Unspecified asthma, uncomplicated; G43.909 Migraine, unspecified, not intractable, without status migrainosus; Z79.2 Long term (current) use of antibiotics; Z79.891 Long term (current) use of opiate analgesic; Z88.8 Allergy status to other drugs, medicaments and biological substances; Z88.2 Allergy status to sulfonamides
CPT/HCPCS: 10060; 99283

== ENCOUNTER 2019-01-03 12:51 | Emergency (ER) | payer SELFPAY ==
[~2019-01-03] VITALS: Ht 160 cm; Wt 91.3 kg
[2019-01-03 12:51] VITALS: BP 145/57
[2019-01-03] MEDS ORDERED: DOXYCYCLINE HYCLATE 100 MG TABLET PO ONE (13:15)
[2019-01-03] MEDS ORDERED: ERYTHROMYCIN 0.5% OPHTH OINTMENT 1GM TUBE. OD ONE (13:15)
[2019-01-03] MEDS ORDERED: ERYT1OIN6 OP (13:24)
[2019-01-03] MEDS ORDERED: DOXY100C2 PO (13:24)
--- NOTE | 2019-01-03 13:24 | PHYS DOC ---
Past History Past Medical History: Asthma, Migraines Past Surgical History: Cholecystectomy, Hysterectomy, Tonsillectomy Alcohol Use: None Drug Use: None Adult General Chief Complaint Chief Complaint: ABSCESS HPI HPI Patient is a 38-year-old female who presents with complaint of swelling, redness and pain to her right lower eyelid. Patient also complains of 2 small pimples on her left axilla. She states that they burn and itch and hurt. She denies any fever. She states that lesions have been present since yesterday.[] Review of Systems Review of Systems Constitutional: Denies fever or chills [] Eyes: Denies change in visual acuity, with redness, swelling and pain to right lower eyelid[] Respiratory: Denies cough or shortness of breath [] Cardiovascular: No additional information not addressed in HPI [] Integument: Small skin lesions to left axilla [] Allergies Allergies Allergies Coded Allergies Type Severity Reaction Last Updated Verified hydrochlorothiazide Allergy Severe 10/03/17 Yes Sulfa (Sulfonamide Antibiotics) Allergy Intermediate Rash 10/03/17 Yes meloxicam Allergy Intermediate Rash 10/03/17 Yes prochlorperazine Allergy Intermediate Rash 10/03/17 Yes menthol Allergy Unknown 10/03/17 Yes rofecoxib Allergy Unknown 10/03/17 Yes Uncoded Allergies Type Severity Reaction Last Updated Verified CALAMINE LOTION Allergy Unknown 04/05/16 Physical Exam Physical Exam Constitutional: Well developed, well nourished, no acute distress, non-toxic appearance. [] Eyes: PERRLA, EOMI. right lower eyelid demonstrates swelling, redness and mild induration. [] Cardiovascular:Heart rate regular rhythm, no murmur [] Lungs & Thorax: Bilateral breath sounds clear to auscultation [] Skin: Left axilla demonstrates 2 very small pustular lesions, consistent with folliculitis. [] EKG EKG [] Radiology/Procedures Radiology/Procedures [] Course & Med Decision Making Course & Med Decision Making Pertinent Labs and Imaging studies reviewed. (See chart for details) [] Dragon Disclaimer Dragon Disclaimer This electronic medical record was generated, in whole or in part, using a voice recognition dictation system. Departure Departure: Impression: Primary Impression: Folliculitis Additional Impression: Stye Disposition: 01 HOME, SELF-CARE Condition: RELEASED IN CUSTODY Referrals: RAMAN SHARMA (PCP) Patient Instructions: Folliculitis, Sty Scripts Erythromycin Base (Erythromycin) 1 Gm Oint...g. 0.5 INCH OP TID for stye, #3.5 GM Prov: HAILEY HERNANDEZ Jr. DO 01/03/19 Doxycycline Hyclate (DOXYCYCLINE HYCLATE) 100 Mg Capsule 1 CAP PO BID for infection, #20 CAP Prov: HAILEY HERNANDEZ Jr. DO 01/03/19 Problem Qualifiers Additional Impression: Stye Laterality: right Eyelid: lower Qualified Codes: H00.012 - Hordeolum externum right lower eyelid HAILEY HERNNADEZ Jr. DO Jan 03, 2019 13:24
[2019-01-03] MEDS ORDERED: LIDO15SO2 TOP (13:26)
== END 2019-01-03 13:30 | disposition home or self-care (01) ==
LOC: ER 12:51
DX: H00.012 Hordeolum externum right lower eyelid (principal); L73.9 Follicular disorder, unspecified; J45.909 Unspecified asthma, uncomplicated; G43.909 Migraine, unspecified, not intractable, without status migrainosus; Z88.2 Allergy status to sulfonamides; Z88.8 Allergy status to other drugs, medicaments and biological substances
CPT/HCPCS: 99283

== ENCOUNTER 2019-04-04 11:40 | Emergency (ER) | payer SELFPAY ==
[~2019-04-04] VITALS: Ht 160 cm; Wt 88.8 kg
[~2019-04-04 11:40] MED LIST changes: +DOXY100C2 PO; +ERYT1OIN6 OP; +LIDO15SO2 TOP
[2019-04-04 11:51] VITALS: BP 166/129
[2019-04-04] MEDS ORDERED: ORPH-16 PO (12:09)
[2019-04-04] MEDS ORDERED: PRED20TA PO (12:09)
--- NOTE | 2019-04-04 12:09 | PHYS DOC ---
Past History Past Medical History: Asthma, Migraines Past Surgical History: Cholecystectomy, Hysterectomy, Tonsillectomy Smoking: Cigarettes Alcohol Use: None Drug Use: None Adult General Chief Complaint Chief Complaint: SHOULDER INJURY HPI HPI 39-year-old female presents with report of left shoulder pain which is been ongoing for the past 3 days. Patient reports she has been helping her sister move. Reports his been overusing her shoulder. Reports pain worse with range of motion. Denies numbness or tingling. Denies chest pain. Denies specific fall or trauma. Denies fever or chills. Denies swelling or redness. Denies shortness of air. Review of Systems Review of Systems Constitutional: Denies fever or chills Respiratory: Denies cough or shortness of breath Cardiovascular: Denies chest pain or palpitations Musculoskeletal: Reports pain to left shoulder; denies deformity Integument: Denies rash or skin lesions Neurologic: Denies headache, focal weakness or sensory changes Complete systems were reviewed and found to be within normal limits, except as documented in this note. Allergies Allergies Allergies Coded Allergies Type Severity Reaction Last Updated Verified hydrochlorothiazide Allergy Severe 10/03/17 Yes Sulfa (Sulfonamide Antibiotics) Allergy Intermediate Rash 10/03/17 Yes meloxicam Allergy Intermediate Rash 10/03/17 Yes prochlorperazine Allergy Intermediate Rash 10/03/17 Yes menthol Allergy Unknown 10/03/17 Yes rofecoxib Allergy Unknown 10/03/17 Yes Uncoded Allergies Type Severity Reaction Last Updated Verified CALAMINE LOTION Allergy Unknown 04/05/16 Physical Exam Physical Exam Constitutional: Well developed, well nourished, uncomfortable, non-toxic appearance HENT: Normocephalic, atraumatic Eyes: Conjunctiva normal, no discharge Neck: Normal range of motion, supple Cardiovascular: Left radial pulses +2, cap refill less than 2 seconds Lungs & Thorax: No respiratory distress, no chest wall tenderness on palpation Skin: Warm, dry, no erythema, no rash Extremities: Left shoulder with pain on flexion/extension/abduction, no deformity, no bony tenderness Neurologic: Alert and oriented X 3, no focal deficits noted Psychologic: Affect normal, judgement normal Current Patient Data Vital Signs Vital Signs Date Time Temp Pulse Resp B/P (MAP) Pulse Ox O2 Delivery O2 Flow Rate FiO2 04/04/19 11:51 98.0 86 18 100 Room Air EKG EKG [] Radiology/Procedures Radiology/Procedures [] Course & Med Decision Making Course & Med Decision Making Patient presents with history of present illness and physical exam concerning for shoulder strain. No deformity noted. Limb neurovascularly intact. Pain with range of motion which appears muscular skeletal in nature. Symptomatic treatment provided with ice pack, oral steroid, and IM muscle relaxer. Imaging deferred given lack of trauma. Sling provided for comfort. Patient educated would need to do shoulder circles 10 times each direction 5 times daily to prevent frozen shoulder. Patient stable for discharge with outpatient follow-up with PCP/orthopedics. Orthopedic referral provided. Discussed findings and plan with patient, who acknowledges understanding and agreement. Dragon Disclaimer Dragon Disclaimer This electronic medical record was generated, in whole or in part, using a voice recognition dictation system. Splinting Splinting : Location: Left arm Pre-Made Type: Sling Pre-Proc Neuro Vasc Exam: normal Post-Proc Neuro Vasc Exam: normal, unchanged from pre-exam Departure Departure: Impression: Primary Impression: Left shoulder strain Disposition: 01 HOME, SELF-CARE Condition: STABLE Referrals: RAMAN SHARMA (PCP) MIKE REYNOLDS MD Patient Instructions: Shoulder Sprain Scripts Orphenadrine Citrate (ORPHENADRINE CITRATE) 100 Mg Tablet.er 1 TAB PO BID PRN for MUSCLE PAIN, #14 TAB 0 Refills Prov: GABBY MCDANIEL DO 04/04/19 Prednisone (PREDNISONE) 20 Mg Tablet 2 TAB PO BID for Inflammation, #8 TAB Start this prescription for Friday04/05/19 Prov: GABBY MCDANIEL DO 04/04/19 Problem Qualifiers Primary Impression: Left shoulder strain Encounter type: initial encounter Qualified Codes: S46.912A - Strain of unspecified muscle, fascia and tendon at shoulder and upper arm level, left arm, initial encounter GABBY MCDANIEL DO Apr 04, 2019 12:09
[2019-04-04] MEDS ORDERED: DEXAMETHASONE 4 MG TABLET PO ONE (12:30)
[2019-04-04] MEDS ORDERED: ORPHENADRINE CITRATE 60 MG/2 ML VIAL. IM ONE (12:30)
== END 2019-04-04 12:33 | disposition home or self-care (01) ==
LOC: ER 11:40
DX: S46.912A Strain of unspecified muscle, fascia and tendon at shoulder and upper arm level, left arm, initial encounter (principal); J45.909 Unspecified asthma, uncomplicated; G43.909 Migraine, unspecified, not intractable, without status migrainosus; F17.210 Nicotine dependence, cigarettes, uncomplicated; Z88.2 Allergy status to sulfonamides; Z88.8 Allergy status to other drugs, medicaments and biological substances; X50.9XXA Other and unspecified overexertion or strenuous movements or postures, initial encounter; Y93.89 Activity, other specified; Y92.89 Other specified places as the place of occurrence of the external cause; Y99.8 Other external cause status
CPT/HCPCS: 96372; 99283; J2360; J8540

== ENCOUNTER 2019-07-06 10:27 | Emergency (ER) | payer SELFPAY ==
[~2019-07-06] VITALS: Ht 160 cm; Wt 89.2 kg
[~2019-07-06 10:27] MED LIST changes: +ORPH-16 PO; +PRED20TA PO
[2019-07-06 10:37] VITALS: BP 140/102
--- NOTE | 2019-07-06 10:53 | PHYS DOC ---
Past History Past Medical History: Asthma, Migraines Past Surgical History: Cholecystectomy, Hysterectomy, Tonsillectomy Smoking: Cigarettes Alcohol Use: None Drug Use: None Adult General Chief Complaint Chief Complaint: EYE PROBLEMS HPI HPI A 39-year-old female presents with a lesion under her right eye. Patient noticed a blemish a few days ago that has progressed since. Become more swollen, erythematous, more painful, and now has a nelson. His had multiple styes in the past but this is not on the eyelid. Patient denies fevers or pain with extraocular motion. She describes the pain as burning and like "she's been punched in the eye" and rates it as a 7/10. Review of Systems Review of Systems Constitutional: Denies fever or chills Eyes: Denies redness or eye pain HENT: Denies nasal congestion or sore throat. Lesion inferior to the right eye. Respiratory: Denies cough or shortness of breath Cardiovascular: Denies chest pain or palpitations GI: Denies abdominal pain, nausea, or vomiting : Denies dysuria or hematuria Musculoskeletal: Denies back pain or joint pain Integument: Denies rash; reports erythema and swelling below right eye Neurologic: Denies headache, focal weakness or sensory changes Complete systems were reviewed and found to be within normal limits, except as documented in this note. Allergies Allergies Allergies Coded Allergies Type Severity Reaction Last Updated Verified hydrochlorothiazide Allergy Severe 10/03/17 Yes Sulfa (Sulfonamide Antibiotics) Allergy Intermediate Rash 10/03/17 Yes meloxicam Allergy Intermediate Rash 10/03/17 Yes prochlorperazine Allergy Intermediate Rash 10/03/17 Yes menthol Allergy Unknown 10/03/17 Yes rofecoxib Allergy Unknown 10/03/17 Yes Uncoded Allergies Type Severity Reaction Last Updated Verified CALAMINE LOTION Allergy Unknown 04/05/16 Physical Exam Physical Exam Constitutional: Well developed, well nourished, no acute distress, non-toxic appearance HENT: Normocephalic, atraumatic, oropharynx moist Eyes: PERRL, EOMI, conjunctiva normal, no discharge. A lesion under the right eye that is erythematous, swollen, tender to palpation, with a nelson. She also has some mild right facial swelling. Neck: Normal range of motion, no tenderness, supple Cardiovascular: Heart rate normal, regular rhythm Lungs & Thorax: Bilateral breath sounds clear to auscultation, no wheezing Abdomen: Soft, no tenderness Extremities: No tenderness, ROM intact, no edema Neurologic: Alert and oriented X 3, no focal deficits noted Psychologic: Affect normal, judgement normal Current Patient Data Vital Signs Vital Signs Date Time Temp Pulse Resp B/P (MAP) Pulse Ox O2 Delivery O2 Flow Rate FiO2 07/06/19 10:37 98.3 70 16 100 Room Air EKG EKG [] Radiology/Procedures Radiology/Procedures [] Course & Med Decision Making Course & Med Decision Making A 39-year-old female presents to the emergency department with a lesion under her right eye that has worsened over the last few days. It is erythematous, swollen, painful, and has a lightheaded. Mild fluctuance. Needle aspiration performed with small purulence expressed. Wound cleaned and dressed. Patient was given oral antibiotics and discharged home in stable condition. Patient stable for discharge with outpatient follow-up with PCP. Discussed findings and plan with patient, who acknowledges understanding and agreement. Dragon Disclaimer Dragon Disclaimer This electronic medical record was generated, in whole or in part, using a voice recognition dictation system. Incision and Drainage Incision and Drainage : Site: Right zygomatic region Blade Size: 20g needle Progress Verbal consent obtained. Time out performed. Hand hygiene utilized. Wound cleaned with ChloraPrep. Needle decompression performed with 20-gauge hypodermic needle without significant aspirate noted. Expression of lesion with long qtips performed with some purulent discharge noted. W Patient tolerated procedure well and without difficulty. Empiric antibiotic ointment applied prior to sterile dressing. Departure Departure: Impression: Primary Impression: Cellulitis and abscess of face Disposition: HOME, SELF-CARE Condition: STABLE Referrals: RAMAN SHARMA (PCP) Patient Instructions: Abscess, [id number], Cellulitis, [id number] Scripts Hydrocodone Bit/Acetaminophen (NORCO 5-325 TABLET) 1 Each Tablet 0.5-1 TAB PO Q6HRS PRN for PAIN, #10 TAB Prov: GABBY MCDANIEL DO 07/06/19 Bacitracin (Bacitracin) 28.4 Gm Oint...g. 1 REAGAN TP TID for Infection, #1 TUBE Prov: GABBY MCDANIEL DO 07/06/19 Clindamycin Hcl (CLINDAMYCIN HCL) 300 Mg Capsule 1 CAP PO TID for infection for 7 Days, #21 CAP Prov: GABBY MCDANIEL DO 07/06/19 GABBY MCDANIEL DO Jul 06, 2019 10:53
[2019-07-06] MEDS ORDERED: CLIN300C8 PO (11:04)
[2019-07-06] MEDS ORDERED: BACI28.43 TP (11:06)
[2019-07-06] MEDS ORDERED: HYDROcodone/APAP 5/325MG 1 TAB TABLET PO ONE (11:15)
[2019-07-06] MEDS ORDERED: NEOMY/BACITR/POLYMYXIN OINT PACKET. TP ONE (11:15)
[2019-07-06] MEDS ORDERED: CLINDAMYCIN HCL 150 MG CAPSULE PO ONE (11:15)
[2019-07-06] MEDS ORDERED: HYDR-3165 PO (11:19)
== END 2019-07-06 11:26 | disposition home or self-care (01) ==
LOC: ER 10:27
DX: L02.01 Cutaneous abscess of face (principal); L03.211 Cellulitis of face; J45.909 Unspecified asthma, uncomplicated; G43.909 Migraine, unspecified, not intractable, without status migrainosus; F17.210 Nicotine dependence, cigarettes, uncomplicated; Z88.5 Allergy status to narcotic agent; Z88.2 Allergy status to sulfonamides; Z88.8 Allergy status to other drugs, medicaments and biological substances
CPT/HCPCS: 10160; 99284

== ENCOUNTER 2019-12-04 15:46 | Emergency (ER) | payer SELFPAY ==
[~2019-12-04] VITALS: Ht 160 cm; Wt 89.2 kg
[~2019-12-04 15:46] MED LIST changes: +BACI28.43 TP; +CLIN300C8 PO; -LIDO15SO2 TOP; +LIDO20SO10 TOP
[2019-12-04 15:50] VITALS: BP 136/82
[2019-12-04] MEDS ORDERED: KETOROLAC 60 MG/2 ML VIAL. IM ONE (16:00)
[2019-12-04] MEDS ORDERED: ORPHENADRINE CITRATE 60 MG/2 ML VIAL. IM ONE (16:00)
[2019-12-04] MEDS ORDERED: METH-38 PO (16:14)
[2019-12-04] MEDS ORDERED: NAPR500T8 PO (16:14)
--- NOTE | 2019-12-04 16:14 | PHYS DOC ---
Past History Past Medical History: Asthma, Migraines Past Surgical History: Cholecystectomy, Hysterectomy, Tonsillectomy Smoking: Cigarettes Alcohol Use: None Drug Use: None General Adult EDM: Chief Complaint: BACK PAIN OR INJURY HPI: HPI: Patient is a 39-year-old female who presents with low back pain. She states she hurt her back several days ago lifting a chair and then exacerbated again today at work. She states the pain radiates down into her hips. She denies any bowel or bladder dysfunction. She denies any true lumbar radiculopathy. She denies any sciatic pain [] Review of Systems: Review of Systems: Constitutional: Denies fever or chills Eyes: Denies change in visual acuity HENT: Denies nasal congestion or sore throat Respiratory: Denies cough or shortness of breath Cardiovascular: Denies chest pain or edema GI: Denies abdominal pain, nausea, vomiting, bloody stools or diarrhea : Denies dysuria Musculoskeletal: Per HPI Integument: Denies rash Neurologic: Denies headache, focal weakness or sensory changes Endocrine: Denies polyuria or polydipsia Lymphatic: Denies swollen glands Psychiatric: Denies depression or anxiety Heart Score: Risk Factors: Risk Factors: DM, Current or recent (<one month) smoker, HTN, HLP, family history of CAD, obesity. Risk Scores: Score 0 - 3: 2.5% MACE over next 6 weeks - Discharge Home Score 4 - 6: 20.3% MACE over next 6 weeks - Admit for Clinical Observation Score 7 - 10: 72.7% MACE over next 6 weeks - Early Invasive Strategies Current Medications: Current Meds: Current Medications Medications (Trade) Dose Ordered Sig/Lisa Start Time Stop Time Status Last Admin Dose Admin Ketorolac Tromethamine (Toradol Im) 60 mg 1X ONCE 12/04/19 16:00 12/04/19 16:01 UNV Orphenadrine Citrate (Norflex) 60 mg 1X ONCE 12/04/19 16:00 12/04/19 16:01 UNV Allergies: Allergies: Allergies Coded Allergies Type Severity Reaction Last Updated Verified hydrochlorothiazide Allergy Severe 10/03/17 Yes Sulfa (Sulfonamide Antibiotics) Allergy Intermediate Rash 10/03/17 Yes meloxicam Allergy Intermediate Rash 10/03/17 Yes prochlorperazine Allergy Intermediate Rash 10/03/17 Yes menthol Allergy Unknown 10/03/17 Yes rofecoxib Allergy Unknown 10/03/17 Yes Uncoded Allergies Type Severity Reaction Last Updated Verified CALAMINE LOTION Allergy Unknown 04/05/16 Physical Exam: PE: Constitutional: Well developed, well nourished, moderate distress, non-toxic appearance. [] HENT: Normocephalic, atraumatic, bilateral external ears normal, oropharynx moist, no oral exudates, nose normal. [] Eyes: PERRLA, EOMI, conjunctiva normal, no discharge. [] Neck: Normal range of motion, no tenderness, supple, no stridor. [] Cardiovascular:Heart rate regular rhythm, no murmur [] Lungs & Thorax: Bilateral breath sounds clear to auscultation [] Abdomen: Bowel sounds normal, soft, no tenderness, no masses, no pulsatile masses. [] Skin: Warm, dry, no erythema, no rash. [] Back: No tenderness, no CVA tenderness. [] Extremities: No tenderness, no cyanosis, no clubbing, ROM intact, no edema. [] Neurologic: Alert and oriented X 3, normal motor function, normal sensory function, no focal deficits noted. [] Psychologic: Affect normal, judgement normal, mood normal. [] Current Patient Data: Vital Signs: Vital Signs Date Time Temp Pulse Resp B/P (MAP) Pulse Ox O2 Delivery O2 Flow Rate FiO2 12/04/19 15:50 98.2 90 24 140/102 (115) 100 Room Air EKG: EKG: [] Radiology/Procedures: Radiology/Procedures: [] Course & Med Decision Making: Course & Med Decision Making Pertinent Labs and Imaging studies reviewed. (See chart for details) [] Dragon Disclaimer: Dragon Disclaimer: This electronic medical record was generated, in whole or in part, using a voice recognition dictation system. Departure Departure: Impression: Primary Impression: Low back pain Qualified Codes: M54.5 - Low back pain Disposition: 01 HOME/RESIDENCE PRIOR TO ADM Condition: STABLE Referrals: RAMAN SHARMA (PCP) Patient Instructions: Back Exercises, Back Pain, Adult Additional Instructions: Return to the emergency department any new or concerning symptoms Scripts Methocarbamol (ROBAXIN-750) 750 Mg Tablet 1 TAB PO BID for back pain for 30 Days, #60 TAB 0 Refills Prov: TAMEKA BURNETTE DO 12/04/19 Naproxen (NAPROXEN) 500 Mg Tablet.dr 1 TAB PO Q12HR PRN for PAIN, #60 TAB 1 Refill Prov: TAMEKA BURNETTE DO 12/04/19 Justification of Admission: Justification of Admission: Justification of Admission Dx: No TAMEKA BURNETTE DO Dec 04, 2019 16:14
== END 2019-12-04 16:28 | disposition home or self-care (01) ==
LOC: ER 15:46
DX: M54.5 Low back pain (principal); J45.909 Unspecified asthma, uncomplicated; G43.909 Migraine, unspecified, not intractable, without status migrainosus; F17.210 Nicotine dependence, cigarettes, uncomplicated; Z90.49 Acquired absence of other specified parts of digestive tract; Z90.710 Acquired absence of both cervix and uterus; Z88.2 Allergy status to sulfonamides; Z88.8 Allergy status to other drugs, medicaments and biological substances
CPT/HCPCS: 96372; 99284; J1885; J2360

== ENCOUNTER 2019-12-20 13:49 | Emergency (ER) | payer SELFPAY ==
[~2019-12-20] VITALS: Ht 160 cm; Wt 89.2 kg
[~2019-12-20 13:49] MED LIST changes: +METH-38 PO; +NAPR500T8 PO
[2019-12-20] MEDS ORDERED: HYDR-3165 PO (14:13)
[2019-12-20] MEDS ORDERED: PRED20TA PO (14:13)
--- NOTE | 2019-12-20 14:14 | PHYS DOC ---
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 Patient reports she has been working in the yard. 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 Patient reports syndrome was secondary to environmental allergen rather than antibiotic. Patient concerned she may get Parr-Ian from this current episode. Review of Systems: Review of Systems: Constitutional: Denies fever or chills Eyes: Denies redness or eye pain HENT: Denies nasal congestion or sore throat Respiratory: Denies cough or shortness of breath Cardiovascular: Denies chest pain or palpitations GI: Denies abdominal pain, nausea, or vomiting : Denies dysuria or hematuria Musculoskeletal: Denies back pain or joint pain Integument: Reports pruritic rash Neurologic: Denies headache, focal weakness or sensory changes Complete systems were reviewed and found to be within normal limits, except as documented in this note. Current Medications: Current Meds: Current Medications Medications (Trade) Dose Ordered Sig/[facility] Start Time Stop Time Status Last Admin Dose Admin Acetaminophen/ Hydrocodone Bitart (Lortab 5/325) 1 tab 1X ONCE 12/20/19 14:15 12/20/19 14:16 UNV Dexamethasone (Decadron) 10 mg 1X ONCE 12/20/19 14:15 12/20/19 14:16 UNV Allergies: Allergies: Allergies Coded Allergies Type Severity Reaction Last Updated Verified hydrochlorothiazide Allergy Severe 12/20/19 Yes Sulfa (Sulfonamide Antibiotics) Allergy Intermediate Rash 12/20/19 Yes meloxicam Allergy Intermediate Rash 12/20/19 Yes prochlorperazine Allergy Intermediate Rash 12/20/19 Yes menthol Allergy Unknown 12/20/19 Yes rofecoxib Allergy Unknown 12/20/19 Yes Uncoded Allergies Type Severity Reaction Last Updated Verified CALAMINE LOTION Allergy Unknown 04/05/16 Physical Exam: PE: Constitutional: Well developed, well nourished, anxious, non-toxic appearance HENT: Normocephalic, atraumatic Eyes: Conjunctiva normal, no discharge Neck: Normal range of motion, no tenderness, supple Lungs & Thorax: No respiratory distress, equal chest rise and fall Abdomen: Soft, no tenderness Skin: Warm, dry, no erythema, pruritic scattered rash to bilateral arms, left upper ear, and upper thoracic back/neck, no erythema or induration Extremities: No tenderness, ROM intact, no edema Neurologic: Alert and oriented X 3, no focal deficits noted Psychologic: Affect anxious, judgment normal EKG: EKG: [] Radiology/Procedures: Radiology/Procedures: [] Course & Med Decision Making: Course & Med Decision Making Patient presents with pruritic rash concerning for possible poison tatyana exposure. Symptomatic treatment provided. 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 Discussed findings and plan with patient, who acknowledges understanding and agreement. Fermín Disclaimer: Fermín Disclaimer: This electronic medical record was generated, in whole or in part, using a voice recognition dictation system. Departure Departure: Impression: Primary Impression: Poison tatyana dermatitis Disposition: HOME/RESIDENCE PRIOR TO ADM Condition: STABLE Referrals: RAMAN SHARMA (PCP) Patient Instructions: Poison Tatyana, [id number] Additional Instructions: Take over the counter Benadry 25mg every 4-6 hours as needed. Take over the counter Pepcid 20mg twice daily Scripts Hydrocodone Bit/Acetaminophen (NORCO 5-325 TABLET) 1 Each Tablet 0.5-1 TAB PO Q6HRS PRN for RASH, #10 TAB Prov: GABBY MCDANIEL DO 12/20/19 Prednisone (PREDNISONE) 20 Mg Tablet 2 TAB PO DAILY for Rash, #8 TAB Start this prescription tomorrow, Friday12/21/19 Prov: GABBY MCDANIEL DO 12/20/19 Justification of Admission: Justification of Admission: Justification of Admission Dx: N/A GABBY MCDANIEL DO Dec 20, 2019 14:14
[2019-12-20] MEDS ORDERED: DEXAMETHASONE 4 MG TABLET PO ONE (14:15)
[2019-12-20] MEDS ORDERED: HYDROcodone/APAP 5/325MG 1 TAB TABLET PO ONE (14:15)
[2019-12-20 14:42] VITALS: BP 145/89
== END 2019-12-20 14:35 | disposition home or self-care (01) ==
LOC: ER 13:49
DX: L23.7 Allergic contact dermatitis due to plants, except food (principal); J45.909 Unspecified asthma, uncomplicated; G43.909 Migraine, unspecified, not intractable, without status migrainosus; F17.210 Nicotine dependence, cigarettes, uncomplicated; Z88.2 Allergy status to sulfonamides; Z88.8 Allergy status to other drugs, medicaments and biological substances
CPT/HCPCS: 99283; J8540